=== PATIENT | male | born 1990 | race Hispanic/Latino ===

== ENCOUNTER 2018-10-08 15:05 | Emergency (ER) | payer BC ==
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
[2018-10-08] MEDS ORDERED: Morphine 4 MG/ML VIAL ONE ×2 (15:43→16:46)
[2018-10-08] MEDS ORDERED: Propofol 10 mg/ml Inj (20 ML) IV ONE ×9 (15:53→17:25)
--- NOTE | 2018-10-08 15:56 | RAD ---
Date of service: 10/08/2018 PROCEDURE: Radiograph of the left shoulder HISTORY: shoulder injury COMPARISON: No prior. FINDINGS: BONES: Bone alignment and mineralization are normal. There is no acute displaced fracture or bone destruction. JOINTS: Anterior-inferior dislocation of the glenohumeral joint. The acromioclavicular joint is normal. SOFT TISSUES: Normal. OTHER FINDINGS: None. IMPRESSION: Anterior-inferior dislocation of the glenohumeral joint.
[2018-10-08] MEDS: Morphine 4 MG/ML VIAL IVP STA ×2 (16:00→16:45)
[2018-10-08] MEDS ORDERED: Propofol 10 mg/ml 0 MG/0 ML VIAL ONE (16:02)
[2018-10-08] MEDS ORDERED: Propofol 10 mg/ml Inj (20 ML) ONE ×3 (16:07→17:57)
[2018-10-08] MEDS ORDERED: Midazolam 2 MG/2 ML VIAL ONE ×3 (16:41→17:57)
[2018-10-08] MEDS ORDERED: Midazolam 2 MG/2 ML VIAL IV STA ×3 (17:18→18:21)
[2018-10-08 17:39] LABS: BASO % 0.4 % (0.0-2.0); EOS # 0.2 K/uL (0.0-0.7); EOS % 2.7 % (0.0-4.0); HEMOGLOBIN 16.3 g/dL (12.0-18.0); LYMPH # 2.5 K/uL (1.0-4.3); LYMPH % 27.7 % (20.0-40.0); MEAN CELL VOLUME 91.1 fl (80.0-94.0); MEAN CORPUSCULAR HEMOGLOBIN 30.7 pg (27.0-31.0); MEAN CORPUSCULAR HGB CONC 33.7 g/dL (33.0-37.0); MONO # 0.5 K/uL (0.0-0.8); MONO % 5.7 % (0.0-10.0); NEUT # 5.8 K/uL (1.8-7.0); NEUT % 63.5 % (50.0-75.0); RBC 5.32 Mil/uL (4.40-5.90); RED CELL DISTRIBUTION WIDTH 12.2 % (11.5-14.5); WHITE BLOOD COUNT 9.1 K/uL (4.8-10.8)
[2018-10-08 17:47] LABS: INR 1.1
--- NOTE | 2018-10-08 17:48 | CT ---
Date of service: 10/08/2018 PROCEDURE: CT of the left shoulder without contrast. HISTORY: Left shoulder dislocation COMPARISON: Plain radiograph performed earlier the same day TECHNIQUE: Contiguous axial images of the right hip were obtained. Coronal and sagittal reformats were generated. Radiation dose: Total exam DLP = 319.28 mGy-cm. This CT exam was performed using one or more of the following dose reduction techniques: Automated exposure control, adjustment of the mA and/or kV according to patient size, and/or use of iterative reconstruction technique. FINDINGS: BONES: There is a Hill-Sachs deformity in the posterior aspect of greater tuberosity of the humerus. There anterior inferior dislocation of the glenohumeral joint. The acromioclavicular joint is normal. Bone mineralization is normal. There is no acute displaced fracture. SOFT TISSUES: The periarticular muscles are normal. Evaluation of the rotator cuff and tendons is limited on noncontrast CT examination. IMPRESSION: S anterior inferior glenohumeral dislocation. Hill-Sachs deformity in the greater tuberosity of the humerus. No acute displaced fracture.
[2018-10-08 17:50] LABS: PARTIAL THROMBOPLASTIN TIME 29.7 Seconds (25.6-37.1)
[2018-10-08] MEDS ORDERED: Morphine 4 MG/ML VIAL IVP STA (17:52)
[2018-10-08 17:54] LABS: ALB/GLOB RATIO 1.7 (1.0-2.1); ALT/SGPT 44 U/L (21-72); AST/SGOT 45 U/L (17-59); BLOOD UREA NITROGEN 18 mg/dl (9-20); CALCIUM 9.9 mg/dL (8.4-10.2); GFR NON-AFRICAN AMERICAN > 60
[2018-10-08] MEDS ORDERED: Propofol 10 mg/ml Inj (20 ML) IV STA (18:21)
--- NOTE | 2018-10-08 18:48 | RAD ---
Date of service: 10/08/2018 PROCEDURE: Radiographs of the left shoulder HISTORY: Status post reduction COMPARISON: No prior. FINDINGS: BONES: Bone alignment and mineralization are normal. There is no acute displaced fracture or bone destruction. JOINTS: Successful closed reduction of dislocated glenohumeral joint. Near normal bone alignment. The glenohumeral and acromioclavicular joints are preserved. No significant degenerative osteoarthrosis. SOFT TISSUES: Normal. OTHER FINDINGS: None. IMPRESSION: Successful closed reduction of anterior inferior glenohumeral dislocation. Near normal bone alignment.
[2018-10-08 20:06] VITALS: TEMP 98.5
[2018-10-08 20:14] VITALS: O2SAT 98
[2018-10-09 00:07] VITALS: BP 117/73; PULSE 81; RESP 16
--- NOTE | 2018-10-09 09:07 | CARD ---
APPROVED REPORT Date of service: 10/08/2018 EKG Measurement Heart [id number] <Conclusion> Sinus bradycardia with marked sinus arrhythmia Otherwise normal ECG
--- NOTE | 2018-10-09 14:59 | CT ---
Date of service: 10/08/2018 PROCEDURE: CT of the left shoulder. HISTORY: Left shoulder reduction COMPARISON: 10/25/2018. TECHNIQUE: Contiguous axial images of the left shoulder were obtained. Coronal and sagittal reformats were generated. Radiation dose: Total exam DLP = 285.8 mGy-cm. This CT exam was performed using one or more of the following dose reduction techniques: Automated exposure control, adjustment of the mA and/or kV according to patient size, and/or use of iterative reconstruction technique. FINDINGS: BONES: Bone alignment and mineralization are normal. There is no acute displaced fracture or bone destruction. There is a Hill-Sachs deformity in the posterolateral greater tuberosity of humerus. The acromioclavicular joint is normal. The glenohumeral joint is normal. SOFT TISSUES: The periarticular muscles are normal. The soft tissues are unremarkable. IMPRESSION: Successful closed reduction of anterior inferior glenohumeral dislocation. Normal bone alignment. No acute fracture. Hill-Sachs deformity in the posterolateral greater tuberosity of the humerus. A preliminary report was provided by [facility] [facility].
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
== END 2018-10-08 20:30 | disposition home or self-care (01) ==
LOC: H.ER 15:05
DX: S43.005A Unspecified dislocation of left shoulder joint, initial encounter (principal); W19.XXXA Unspecified fall, initial encounter; Y92.89 Other specified places as the place of occurrence of the external cause; Z88.0 Allergy status to penicillin; R00.1 Bradycardia, unspecified
CPT/HCPCS: 23655; 29240; 73030; 73200; 80053; 85025; 85610; 85730; 93005; 96374; 96375; 99284; J1885; J2250; J2270; J2405; J2704